=== PATIENT | male | born 1975 | race Caucasian/White ===

== ENCOUNTER 2017-01-23 11:49 | Emergency (ER) | payer SELFPAY ==
[2017-01-23 12:27] VITALS: RESP 18
[2017-01-23 12:37] VITALS: BMI 23.8
[2017-01-23 12:53] LABS: RBC URINE 10 /hpf (0-3); URINE BILIRUBIN NEGATIVE (NEGATIVE); URINE BLOOD 1+ (NEGATIVE); URINE COLOR Yellow (YELLOW); URINE GLUCOSE (UA) NORMAL (Normal); URINE KETONE NEGATIVE (NEGATIVE); URINE LEUKOCYTE ESTERASE NEG Leu/uL (Negative); URINE PROTEIN NEGATIVE (NEGATIVE); URINE UROBILINOGEN NORMAL mg/dL (0.2-1.0); WBC URINE < 1 /hpf (0-5)
--- NOTE | 2017-01-23 13:56 | C.PDOC ---
Time Seen by Provider: 01/23/17 13:25 Chief Complaint (Nursing): Abdominal Pain History Per: Patient Onset/Duration Of Symptoms: Days (months), Intermittent Episodes Current Symptoms Are (Timing): Still Present Severity: Moderate Location Of Pain/Discomfort: RLQ Radiation Of Pain To:: None Quality Of Discomfort: Other (bulging) Exacerbating Factors: Other (standing/lifting) Alleviating Factors: Other (laying down) Additional History Per: Prior Records Past Medical History Reviewed: Historical Data, Nursing Documentation, Vital Signs Vital Signs: Last Vital Signs Temp 98.5 F 01/23/17 12:10 Pulse 68 01/23/17 12:10 Resp 18 01/23/17 12:10 BP 134/86 01/23/17 12:10 Pulse Ox 100 01/23/17 12:10 - Medical History PMH: No Chronic Diseases Surgical History: No Surg Hx Family History: States: Unknown Family Hx - Social History Hx Tobacco Use: No Hx Alcohol Use: No Hx Substance Use: No - Immunization History Hx Tetanus Toxoid Vaccination: Yes Hx Influenza Vaccination: Yes Hx Pneumococcal Vaccination: Yes Review Of Systems Except As Marked, All Systems Reviewed And Found Negative. Constitutional: Negative for: Fever, Weakness Cardiovascular: Negative for: Chest Pain Respiratory: Negative for: Shortness of Breath Gastrointestinal: Negative for: Vomiting, Abdominal Pain, Diarrhea Genitourinary: Negative for: Dysuria, Scrotal Pain Musculoskeletal: Negative for: Neck Pain, Back Pain Skin: Negative for: Rash Neurological: Negative for: Weakness, Numbness, Seizures, Altered Mental Status Physical Exam - Physical Exam Appears: Non-toxic, No Acute Distress Skin: Normal Color, Warm, Dry, No Rash Head: Atraumatic, Normacephalic Eye(s): bilateral: Normal Inspection, PERRL, EOMI Neck: Normal ROM, Supple Cardiovascular: Rhythm Regular Respiratory: Normal Breath Sounds, No Accessory Muscle Use Gastrointestinal/Abdominal: Soft, Hernia (right inguinal) Back: No CVA Tenderness Male Genital: No Testicular Tenderness, No Testicular Swelling, No Scrotal Swelling Extremity: Normal ROM Neurological/Psych: Oriented x3, Normal Motor, Normal Sensation ED Course And Treatment O2 Sat by Pulse Oximetry: 100 Pulse Ox Interpretation: Normal Progress Note: Hernia is easy reducible Disposition Counseled Patient/Family Regarding: Studies Performed, Diagnosis, Need For Followup, Rx Given - Disposition Referrals: [facility] [Outside] Disposition: HOME/ ROUTINE Disposition Time: 13:56 Condition: STABLE Additional Instructions: Follow up in the clinic for further evaluation and treatment. Return to the ER if it comes out and gets stuck, develop fever, vomiting, worsening of symptoms or if you have any other concerns Prescriptions: Docusate [Colace] 100 mg PO BID PRN #60 cap PRN Reason: Constipation Instructions: Inguinal Hernia (ED) - Clinical Impression Clinical Impression: Right inguinal hernia
[2017-01-23 14:04] VITALS: BP 130/70; PULSE 55; TEMP 98.3; O2SAT 96
== END 2017-01-23 14:04 | disposition home or self-care (01) ==
LOC: C.ER 11:49
DX: K40.90 Unilateral inguinal hernia, without obstruction or gangrene, not specified as recurrent (principal)

== ENCOUNTER 2017-04-14 15:19 | Emergency (ER) | payer OTHER ==
[2017-04-14 15:19] VITALS: BMI 23.8
--- NOTE | 2017-04-14 16:22 | C.PDOC ---
Time Seen by Provider: 04/14/17 15:54 Chief Complaint (Nursing): Abdominal Pain Past Medical History Vital Signs: Last Vital Signs Temp 98.4 F 04/14/17 15:27 Pulse 84 04/14/17 15:27 Resp 16 04/14/17 15:27 BP 118/72 04/14/17 15:27 Pulse Ox 100 04/14/17 15:27 Family History: States: Unknown Family Hx - Social History Hx Tobacco Use: No Hx Alcohol Use: No Hx Substance Use: No - Immunization History Hx Tetanus Toxoid Vaccination: Yes Hx Influenza Vaccination: Yes Hx Pneumococcal Vaccination: Yes ED Course And Treatment O2 Sat by Pulse Oximetry: 100 Medical Decision Making Medical Decision Making: easily reducable R inguinal hernia, ok for elective repair Disposition Doctor Will See Patient In The: Office Counseled Patient/Family Regarding: Studies Performed, Diagnosis - Disposition Disposition: HOME/ ROUTINE Disposition Time: 16:21 Condition: GOOD Forms: [facility] (Pashto) - Clinical Impression Clinical Impression: Inguinal hernia
--- NOTE | 2017-04-14 16:28 | C.PDOC ---
History Of Present Illness A 42 year old male, who denies any significant past medical history, presents to the emergency department today for right inguinal groin pain, which began about 4-5 months ago. The patient is interested in elective repair. The patient notes the pain gets worse with exertion. The patient denies any fever, nausea, vomiting, diarrhea, or any other complaints at this time. Time Seen by Provider: 04/14/17 15:54 Chief Complaint (Nursing): Abdominal Pain History Per: Patient Onset/Duration Of Symptoms: Other (x 4-5 months ) Current Symptoms Are (Timing): Still Present Location Of Pain/Discomfort: Other (right inguial ) Past Medical History Vital Signs: Last Vital Signs Temp 98.2 F 04/14/17 16:29 Pulse 76 04/14/17 16:29 Resp 18 04/14/17 16:29 BP 120/75 04/14/17 16:29 Pulse Ox 100 04/14/17 16:32 Family History: States: Unknown Family Hx - Social History Hx Tobacco Use: No Hx Alcohol Use: No Hx Substance Use: No - Immunization History Hx Tetanus Toxoid Vaccination: Yes Hx Influenza Vaccination: Yes Hx Pneumococcal Vaccination: Yes Review Of Systems Except As Marked, All Systems Reviewed And Found Negative. Constitutional: Negative for: Fever Cardiovascular: Negative for: Chest Pain Gastrointestinal: Positive for: Abdominal Pain. Negative for: Nausea, Vomiting , Diarrhea Physical Exam - Physical Exam Appears: Well, No Acute Distress Skin: Normal Color, Warm, Dry Head: Atraumatic, Normacephalic Eye(s): bilateral: Normal Inspection, PERRL, EOMI Nose: Normal Throat: Normal Neck: Normal Cardiovascular: Rhythm Regular Respiratory: Normal Breath Sounds Gastrointestinal/Abdominal: Hernia (small right inguinal hernia ) Back: Normal Inspection Extremity: Normal ROM Neurological/Psych: Oriented x3, Normal Speech, Normal Cognition ED Course And Treatment O2 Sat by Pulse Oximetry: 100 (room air ) Medical Decision Making Medical Decision Making: Plan: -- Motrin -- Discharge Progress Notes: easily reducable R inguinal hernia, ok for elective repair Disposition - Disposition Referrals: [facility] [Outside] [facility] [Outside[facility] [[facility]] Antione Rojo MD [Staff Provider] - Disposition: HOME/ ROUTINE Disposition Time: 16:21 Condition: GOOD Additional Instructions: Complete your [facility] Follow-up with Dr. Dickerson- General Surgery- to discuss elective repair of R inguinal hernia Remember techniques @ home to reduce the hernia temporarily: Lay flat on your back Knees bent Reduce with your finger Ice packs on top 1/2 hour per hour Motrin 600 mg every 6 hours. If the hernia is ever NOT able to reduce, then present to ER immediately. Instructions: Inguinal Hernia (ED) Forms: [facility] (Burmese) - Clinical Impression Clinical Impression: Inguinal hernia - Scribe Statement The provider has reviewed the documentation as recorded by the Scribe Senia Zhao All medical record entries made by the Scribe were at my direction and personally dictated by me. I have reviewed the chart and agree that the record accurately reflects my personal performance of the history, physical exam, medical decision making, and the department course for this patient. I have also personally directed, reviewed, and agree with the discharge instructions and disposition.
[2017-04-14 16:29] VITALS: BP 120/75; PULSE 76; RESP 18; TEMP 98.2
[2017-04-14 16:31] VITALS: O2SAT 100
== END 2017-04-14 16:31 | disposition home or self-care (01) ==
LOC: C.ER 15:19
DX: K40.90 Unilateral inguinal hernia, without obstruction or gangrene, not specified as recurrent (principal)

== ENCOUNTER 2018-11-16 07:27 | Emergency (ER) | payer OTHER ==
[2018-11-16 07:34] VITALS: BMI 35.6
[2018-11-16 07:36] VITALS: O2SAT 99
[2018-11-16 08:12] LABS: BASO % 0.4 % (0.0-2.0); EOS # 0.1 K/uL (0.0-0.7); EOS % 1.2 % (0.0-4.0); HEMOGLOBIN 13.5 g/dL (12.0-18.0); LYMPH # 1.3 K/uL (1.0-4.3); LYMPH % 19.9 % (20.0-40.0); MEAN CORPUSCULAR HGB CONC 33.5 g/dL (33.0-37.0); MEAN PLATELET VOLUME 10.6 fL (7.2-11.7); MONO # 0.4 K/uL (0.0-0.8); MONO % 5.9 % (0.0-10.0); NEUT # 4.6 K/uL (1.8-7.0); NEUT % 72.6 % (50.0-75.0); RBC 4.49 Mil/uL (4.40-5.90); RED CELL DISTRIBUTION WIDTH 12.9 % (11.5-14.5); WHITE BLOOD COUNT 6.3 K/uL (4.8-10.8)
[2018-11-16 08:21] LABS: MEAN CELL VOLUME 89.6 fL (80.0-94.0)
[2018-11-16 08:24] LABS: ALB/GLOB RATIO 1.7 (1.0-2.1); ALBUMIN 4.4 g/dL (3.5-5.0); ALT/SGPT 26 U/L (21-72); AST/SGOT 20 U/L (17-59); BLOOD UREA NITROGEN 10 mg/dL (9-20); CALCIUM 9.4 mg/dl (8.6-10.4); GFR NON-AFRICAN AMERICAN > 60
[2018-11-16 08:50] VITALS: BP 125/78; PULSE 70; RESP 18; TEMP 98
--- NOTE | 2018-11-16 09:22 | C.PDOC ---
History Of Present Illness 43 y/o male presents to the ER for evaluation of near-syncopal episode which occurred 8 days ago. Patient states that he almost fainted while he was at work. Patient reports that he feels better since the episode. Currently, patient denies having fever,chills, headache, dizziness, CP,SOB,nausea, and vomiting. Time Seen by Provider: 11/16/18 07:37 Chief Complaint (Nursing): Medical Clearance History Per: Patient History/Exam Limitations: no limitations Onset/Duration Of Symptoms: Days Current Symptoms Are (Timing): Gone Severity: Moderate Past Medical History Reviewed: Historical Data, Nursing Documentation, Vital Signs Vital Signs: Last Vital Signs Temp 98 F 11/16/18 08:35 Pulse 70 11/16/18 08:35 Resp 18 11/16/18 08:35 BP 125/78 11/16/18 08:35 Pulse Ox 99 11/16/18 08:35 - Medical History PMH: No Chronic Diseases Other Surgeries: Hx of surgeries Family History: States: No Known Family Hx - Social History Hx Tobacco Use: No Hx Alcohol Use: No Hx Substance Use: No - Immunization History Hx Tetanus Toxoid Vaccination: Yes Hx Influenza Vaccination: Yes Hx Pneumococcal Vaccination: Yes Review Of Systems Except As Marked, All Systems Reviewed And Found Negative. Constitutional: Negative for: Fever, Chills Cardiovascular: Negative for: Chest Pain Respiratory: Negative for: Shortness of Breath Gastrointestinal: Negative for: Nausea, Vomiting Neurological: Positive for: Other (near-syncopal episode) Physical Exam - Physical Exam Appears: Non-toxic, No Acute Distress Skin: Normal Color, Warm, Dry Head: Atraumatic, Normacephalic Eye(s): bilateral: EOMI, left: Other (amblyopia) Nose: Normal Oral Mucosa: Moist Neck: Supple Chest: Symmetrical Cardiovascular: Rhythm Regular Respiratory: Normal Breath Sounds, No Rales, No Rhonchi, No Wheezing Gastrointestinal/Abdominal: Normal Exam, Soft, No Tenderness, No Guarding, No Rebound Neurological/Psych: Oriented x3, Normal Speech, Normal Motor, Normal Sensation ED Course And Treatment - Laboratory Results Result Diagrams: 11/16/18 08:09 11/16/18 08:09 Lab Results: Total Bilirubin 0.4 mg/dL (0.2-1.3) 11/16/18 08:09 AST 20 U/L (17-59) 11/16/18 08:09 ALT 26 U/L (21-72) 11/16/18 08:09 Alkaline Phosphatase 60 U/L (38-126) 11/16/18 08:09 Total Protein 7.0 g/dL (6.3-8.3) 11/16/18 08:09 Albumin 4.4 g/dL (3.5-5.0) 11/16/18 08:09 Globulin 2.6 gm/dL (2.2-3.9) 11/16/18 08:09 Albumin/Globulin Ratio 1.7 (1.0-2.1) 11/16/18 08:09 ECG: Interpreted By Me, Viewed By Me ECG Rhythm: Sinus Rhythm Interpretation Of ECG: NSR with normal intervals and normal axises Rate From EC O2 Sat by Pulse Oximetry: 99 (RA) Pulse Ox Interpretation: Normal Medical Decision Making Medical Decision Making: Plan: --Labs --ECG Disposition - Disposition Referrals: [facility] [Outside] [facility] [Outside] Disposition: HOME/ ROUTINE Disposition Time: 08:25 Condition: GOOD Additional Instructions: KEELEY BOOTHE, thank you for letting us take care of you today. The emergency medical care you received today was directed at your acute symptoms. If you were prescribed any medication, please fill it and take as directed. It may take several days for your symptoms to resolve. Return to the Emergency Department if your symptoms worsen, do not improve, or if you have any other problems. Please contact your doctor or call one of the physicians/clinics you have been referred to that are listed on the Patient Visit Information form that is included in your discharge packet. Bring any paperwork you were given at discharge with you along with any medications you are taking to your follow up visit. Our treatment cannot replace ongoing medical care by a primary care pro vider outside of the emergency department. Thank you for allowing the [facility] team to be part of your care today. Your exam and blood work was normal today. Follow up with our clinic this week for outpatient care and management. Forms: [facility] (Bengali), Work Excuse - Clinical Impression Clinical Impression: Medical assessment - Scribe Statement The provider has reviewed the documentation as recorded by the Ana Miller Provider Attestation: All medical record entries made by the Scribe were at my direction and personally dictated by me. I have reviewed the chart and agree that the record accurately reflects my personal performance of the history, physical exam, medical decision making, and the department course for this patient. I have also personally directed, reviewed, and agree with the discharge instructions and disposition.
--- NOTE | 2018-11-17 20:47 | CARD ---
APPROVED REPORT Date of service: 11/16/2018 EKG Measurement Heart [id number] <Conclusion> Normal sinus rhythm with sinus arrhythmia Normal ECG
== END 2018-11-16 08:57 | disposition home or self-care (01) ==
LOC: C.ER 07:27
DX: Z00.00 Encounter for general adult medical examination without abnormal findings (principal)